=== PATIENT | male | born 2000 | race Caucasian/White ===

== ENCOUNTER 2021-08-22 10:16 | Emergency (ER) | payer OTHER ==
[2021-08-22] MEDS ORDERED: Tetracaine HCl/PF 0.5% 4 ML Bottle ONE (10:19)
[2021-08-22] MEDS ORDERED: Tetracaine HCl/PF 0.5% 4 ML Bottle EYELF ONE (10:29)
--- NOTE | 2021-08-22 10:34 | EDM.PDOC ---
ED HPI GENERAL MEDICAL PROBLEM - General Stated Complaint: GOT SOMETHING IN EYE WHILE SWEEPING FLOOR AT WORK Time Seen by Provider: 08/22/21 10:25 Source of Information: Reports: Patient History Limitations: Reports: No Limitations - History of Present Illness INITIAL COMMENTS - FREE TEXT/NARRATIVE: Patient presents with foreign body sensation to his left eye. 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 He felt some going to the left eye and continues to have left eye pain. Patient does wear corrective lenses. Denies any visual deficit. The eye is red. He had this happen exact same thing about a month ago was placed on tobramycin drops. Patient states of those drops at home. - Related Data Allergies Allergy/AdvReac Type Severity Reaction Status Date / Time No Known Allergies Allergy Verified 08/22/21 10:28 ED ROS ENT - Review of Systems Review Of Systems: Comprehensive ROS is negative, except as noted in HPI. HEENT: Reports: Eye Pain. Denies: Eye Discharge, Vision Change ED EXAM, ENT - Physical Exam Exam: See Below Exam Limited By: No Limitations General Appearance: Alert, No Apparent Distress Eye Exam: Left Eye: Conjunctival Injection, Other (no corneal abrasion, neg sidel sign , small speck of foreign body into the left upper eye lid ), Bilateral Eye: EOMI, PERRL Course - Orders/Labs/Meds Meds: Medications Discontinued Medications Generic Name Dose Route Start Last Admin Trade Name Freq PRN Reason Stop Dose Admin Tetracaine HCl Confirm 08/22/21 10:19 Tetracaine Hcl/Pf 0.5% 4 Ml Bottle Administered 08/22/21 10:20 Dose 4 ml .ROUTE .STK-MED ONE Tetracaine HCl 1 ml 08/22/21 10:29 08/22/21 10:31 Tetracaine Hcl/Pf 0.5% 4 Ml Bottle EYELF 08/22/21 10:30 1 drop ASDIRECTED ONE Administration - Re-Assessments/Exams Free Text/Narrative Re-Assessment/Exam: After using 1 drop of tetracaine allowed anesthesia to apply to his left eye I carefully visualized the eye with a ophthalmoscope. A small speck of foreign object embedded to the left upper eyelid. With a wet sterile Q-tip I was carefully able to remove it without any difficulty. I did stain his eye no signs of corneal abrasion as well. Patient tolerated it very well 08/22/21 10:29 tobramycin 1 gtt into left eye QID x7 days f/u with eye doctor for recheck within the week. 08/22/21 10:31 Departure - Departure Time of Disposition: 10:32 Disposition: Home, Self-Care 01 Condition: Good Clinical Impression: Foreign body in eye Qualifiers: Encounter type: initial encounter Laterality: left Qualified Code(s): T15.92XA - Foreign body on external eye, part unspecified, left eye, initial encounter - Discharge Information *PRESCRIPTION DRUG MONITORING PROGRAM REVIEWED*: No *COPY OF PRESCRIPTION DRUG MONITORING REPORT IN PATIENT HORTENSIA: No Referrals: May Clinton MD [Primary Care Provider] - Additional Instructions: Use the eyedrops 1 drop 4 times a day into left eye as prescribed for a week follow-up with eye doctor for recheck.
== END 2021-08-22 10:40 | disposition home or self-care (01) ==
LOC: KA.ED 10:16
DX: T15.92XA Foreign body on external eye, part unspecified, left eye, initial encounter (principal)
CPT/HCPCS: 65205; 65210; 99283; 99283-25